=== PATIENT | male | born 1965 | race Caucasian/White ===

== ENCOUNTER → 2018-09-18 | Outpatient (CLI) | payer OTHER ==
[2014-11-05 21:23] VITALS: BP 163/69
== END | disposition home or self-care (01) ==
LOC: PF 07:51
PROVIDERS: ATTEND Emergency Medicine
DX: R06.00 Dyspnea, unspecified (principal); F32.9 Major depressive disorder, single episode, unspecified; F17.210 Nicotine dependence, cigarettes, uncomplicated
CPT/HCPCS: 94010

== ENCOUNTER 2021-02-07 00:54 | Emergency (ER) | payer SELFPAY ==
[~2021-02-07] VITALS: Ht 177.8 cm; Wt 68.2 kg
[2021-02-07] MEDS ORDERED: IV NORMAL SALINE 1000ML BAG 1,000 ML IV ONE ×3 (01:15→02:30)
[2021-02-07] MEDS ORDERED: ONDANSETRON PF 4 MG/2 ML VIAL. IVP ONE ×2 (01:15→05:15)
[2021-02-07 01:26] LABS: BASO # 0.1 x10^3/uL (0.0-0.2); BASO % 1 % (0-3); EOS % 1 % (0-3); HEMATOCRIT 39.9 % (39.0-53.0); HEMOGLOBIN 13.5 g/dL (13.0-17.5); LYMPH # 2.2 x10^3/uL (1.0-4.8); LYMPH % 41 % (24-48); MEAN CORPUSCULAR HEMOGLOBIN 31 pg (25-35); MEAN CORPUSCULAR HGB CONC 34 g/dL (31-37); MEAN CORPUSCULAR VOLUME 90 fL (79-100); MONO % 18 % (0-9); NEUT # 2.1 x10^3/uL (1.8-7.7); NEUT % 39 % (31-73); PLATELET COUNT 212 x10^3/uL (140-400); RED BLOOD COUNT 4.41 x10^6/uL (4.30-5.70); RED CELL DISTRIBUTION WIDTH 14.5 % (11.5-14.5); WHITE BLOOD COUNT 5.4 x10^3/uL (4.0-11.0)
[2021-02-07 01:30] LABS: CALCIUM 7.9 mg/dL (8.5-10.1); CREATININE 0.7 mg/dL (0.7-1.3); GFR 117.1
[2021-02-07 01:37] LABS: ALBUMIN 2.7 g/dL (3.4-5.0); ALBUMIN/GLOBULIN RATIO 0.7 (1.0-1.7); MAGNESIUM 1.8 mg/dL (1.8-2.4); TOTAL BILIRUBIN 0.3 mg/dL (0.2-1.0); TOTAL PROTEIN 6.6 g/dL (6.4-8.2)
[2021-02-07 02:12] LABS: BILIRUBIN,URINE NEGATIVE (NEG); CLARITY,URINE CLEAR; COLOR,URINE YELLOW; NITRITE,URINE NEGATIVE (NEG); PROTEIN,URINE NEGATIVE (NEG-TRACE); UROBILINOGEN,URINE 0.2 mg/dL (0.2 mg/dL)
[2021-02-07 02:18] LABS: BARBITURATES NEG (NEG); BENZODIAZEPINES NEG (NEG); CANNABINOIDS NEG (NEG); COCAINE NEG (NEG); METHADONE NEG (NEG); OPIATES NEG (NEG); PHENCYCLIDINE NEG (NEG)
[2021-02-07 02:18] LABS: % ATYL 2 % (0-0); % BANDS 2 % (0-9); % EOS 1 % (0-5); % LYMPHS 44 % (24-48); % MONOS 11 % (0-10); % SEGS 40 % (35-66); PLT ESTIMATE ADEQUATE (ADEQUATE)
[2021-02-07 02:19] LABS: AMPHETAMINE/METHAMPHETAMINE POS (NEG)
[2021-02-07 02:29] LABS: BACTERIA,URINE 0 /HPF (0-FEW); RBC,URINE 0 /HPF (0-2); WBC,URINE 0 /HPF (0-4)
--- NOTE | 2021-02-07 03:10 | RAD ---
Study: XR CHEST 1V Indication: Cough. Comparison: None. Findings: The cardiomediastinal silhouette is within normal limits for size. Relatively symmetric cris. Increased interstitial markings. No confluent airspace infiltrate, pleural effusion or pneumothorax. Several small granulomas. Multiple radiodensities projecting at the upper abdomen as well as approaching the diaphragmatic hiat us. Impression: Nonspecific increased interstitial markings which could indicate chronic lung disease or potentially an atypical infectious process. No confluent infiltrate to suggest an organizing pneumonia. Electronically signed by: NJ FRANCO MD (02/07/2021 3:07 AM) [facility]
--- NOTE | 2021-02-07 03:51 | EKG ---
[facility] [address] [place] [address] Test Date: 2021-02-07 Test Time: 01:22:15 Pat Name: HILARIA WHITE Department: Room: Gender: M Employee Benefits Manager: : 1965 Requested By: JEREMIAS LATIF Order Number: [id number] Reading MD: Measurements Intervals [place] Rate: 91 P: 41 DE: 182 QRS: 99 QRSD: 88 T: 68 QT: 362 QTc: 447 Interpretive Statements SINUS RHYTHM RIGHTWARD AXIS QRS(T) CONTOUR ABNORMALITY CONSISTENT WITH ANTEROLATERAL INFARCT PROBABLY OLD CONSISTENT WITH INFERIOR INFARCT PROBABLY OLD ABNORMAL ECG RI6.02 No previous ECG available for comparison
[2021-02-07 04:57] VITALS: BP 91/57
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
== END 2021-02-07 05:31 | disposition home or self-care (01) ==
LOC: ER 00:54
DX: F10.229 Alcohol dependence with intoxication, unspecified (principal); F15.10 Other stimulant abuse, uncomplicated; K21.9 Gastro-esophageal reflux disease without esophagitis; F31.9 Bipolar disorder, unspecified; K73.9 Chronic hepatitis, unspecified; F17.200 Nicotine dependence, unspecified, uncomplicated; Z98.890 Other specified postprocedural states
CPT/HCPCS: 36415; 71045; 80053; 80307; 81001; 82550; 83735; 85007; 85025; 93005; 96361; 96374; 96375; 99285; G0480; J2405; J7030

== ENCOUNTER 2022-02-26 21:19 | Emergency (ER) | payer OTHER ==
[~2022-02-26] VITALS: Ht 175.3 cm; Wt 70.0 kg
[2022-02-26 21:41] LABS: BASO % 1 % (0-3); EOS # 0.1 x10^3/uL (0.0-0.7); EOS % 2 % (0-3); HEMATOCRIT 41.6 % (39.0-53.0); HEMOGLOBIN 14.2 g/dL (13.0-17.5); LYMPH # 2.5 x10^3/uL (1.0-4.8); LYMPH % 34 % (24-48); MEAN CORPUSCULAR HEMOGLOBIN 32 pg (25-35); MEAN CORPUSCULAR HGB CONC 34 g/dL (31-37); MEAN CORPUSCULAR VOLUME 93 fL (79-100); MONO # 0.9 x10^3/uL (0.0-1.1); MONO % 12 % (0-9); NEUT # 3.8 x10^3/uL (1.8-7.7); NEUT % 52 % (31-73); PLATELET COUNT 246 x10^3/uL (140-400); RED BLOOD COUNT 4.46 x10^6/uL (4.30-5.70); RED CELL DISTRIBUTION WIDTH 13.3 % (11.5-14.5); WHITE BLOOD COUNT 7.3 x10^3/uL (4.0-11.0)
[2022-02-26] MEDS: ASPIRIN CHEWABLE 81 MG TABLET. PO ONE (21:47)
[2022-02-26] MEDS: diazePAM 5 MG TABLET PO ONE (21:47)
[2022-02-26] MEDS: DEXAMETHASONE SOD PHOS 4 MG/ML VIAL IVP ONE (21:49)
[2022-02-26] MEDS: fentaNYL PF VIAL 100 MCG/2 ML VIAL IVP ONE (21:49)
[2022-02-26] MEDS: KETOROLAC 15 MG/ML VIAL. IVP ONE (21:49)
[2022-02-26 21:52] LABS: CREATININE 0.7 mg/dL (0.7-1.3); GFR 116.2; POTASSIUM 4.1 mmol/L (3.5-5.1)
[2022-02-26] MEDS: IV NORMAL SALINE 1000ML BAG 1,000 ML IV ONE (21:55)
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
[2022-02-26 21:58] LABS: ALBUMIN 3.7 g/dL (3.4-5.0); ALBUMIN/GLOBULIN RATIO 0.9 (1.0-1.7); TOTAL BILIRUBIN 0.6 mg/dL (0.2-1.0); TOTAL PROTEIN 7.9 g/dL (6.4-8.2)
--- NOTE | 2022-02-26 22:12 | RAD ---
Exam: Chest one view INDICATION: Left upper chest pain, pain TECHNIQUE: Frontal view of chest Comparisons: 02/07/2021 FINDINGS: The cardiomediastinal silhouette and pulmonary vessels are within normal limits. The lung and pleural spaces are clear. IMPRESSION: No acute cardiopulmonary process. Electronically signed by: Wan Lundy MD (02/26/2022 10:10 PM) INA
--- NOTE | 2022-02-26 22:13 | RAD ---
Exam: Left shoulder 3 views INDICATION: Left upper chest pain, pain TECHNIQUE: Frontal view of the left shoulder with internal and external rotation and transscapular Y views Comparisons: None FINDINGS: Bone mineralization is normal. No acute or healed fractures. Soft tissues are unremarkable. Joint spa prudencio are well-maintained. IMPRESSION: No acute osseous abnormality Electronically signed by: Wan Lundy MD (02/26/2022 10:10 PM) [facility]NA
[2022-02-26] MEDS ORDERED: IBUP-571 PO (23:25)
[2022-02-26] MEDS ORDERED: HYDR-2761 PO (23:25)
[2022-02-26 23:44] VITALS: BP 154/66
--- NOTE | 2022-02-27 02:23 | EKG ---
[facility] [address] [place] [address] Test Date: 2022-02-26 Test Time: 21:24:36 Pat Name: HILARIA WHITE Department: Room: Gender: M [employer]itcher [employer] Machine: : 1965 Requested By: CATE ANNA Order Number: [id number] Reading MD: Leodan Patricia MD Measurements Intervals [place] Rate: 95 P: 57 [place]: 174 QRS: 100 QRSD: 88 T: 76 QT: 356 QTc: 451 Interpretive Statements SINUS RHYTHM Electronically Signed On 02-27-2022 8:50:59 CDT by Leodan Patricia MD
== END 2022-02-26 23:40 | disposition home or self-care (01) ==
LOC: ER 21:19
DX: R07.89 Other chest pain (principal); M25.512 Pain in left shoulder; M54.2 Cervicalgia; F31.9 Bipolar disorder, unspecified; K21.9 Gastro-esophageal reflux disease without esophagitis; F17.200 Nicotine dependence, unspecified, uncomplicated
CPT/HCPCS: 36415; 71045; 73030; 80053; 82550; 83690; 83880; 84484; 85025; 85379; 93005; 96361; 96374; 96375; 99285; J1100; J1885; J3010; J7030